=== PATIENT | male | born 1990 | race Caucasian/White ===

== ENCOUNTER 2022-01-24 19:49 | Emergency (ER) | payer OTHER, SELFPAY ==
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
[2022-01-24 20:22] VITALS: BP 119/78; PULSE 77; RESP 18; TEMP 36.8; O2SAT 100
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
[2022-01-24] MEDS: IBUPROFEN 400 MG TABLET 800 MG PO (21:18)
[2022-01-24] MEDS: ACETAMINOPHEN 325 MG TABLET 650 MG PO (21:18)
[2022-01-24 22:04] VITALS: BP 122/82; PULSE 74; RESP 18; O2SAT 100
== END 2022-01-24 22:04 | disposition home or self-care (01) ==
PROVIDERS: Emergency Provider Emergency Medicine; PCP Physician Assistant
DX: S13.9XXA Sprain of joints and ligaments of unspecified parts of neck, initial encounter (principal); V63.5XXA Driver of heavy transport vehicle injured in collision with car, pick-up truck or van in traffic accident, initial encounter
CPT/HCPCS: 72125; 99284; A9270